=== PATIENT | male | born 1985 | race Caucasian/White ===

== ENCOUNTER 2020-07-01 11:38 | Emergency (ER) | payer OTHER, SELFPAY ==
--- NOTE | ~2020-07-01 | XR_ITS ---
EXAMINATION: XR chest 2V DATE: 07/01/2020 13:35 INDICATION: Right chest pain. TECHNIQUE: Frontal and lateral views of the chest were obtained. COMPARISON: None. FINDINGS: The chest demonstrates clear lungs without pneumonia, pleural effusion, or pneumothorax. Th e heart size is normal. There are surgical clips in left abdomen. There is mild chronic anterior wedg ing of multiple vertebral bodies. There is an old healed fracture of right eighth rib. IMPRESSION: 1. No acute cardiopulmonary disease. Reviewed, dictated and finalized at location [facility]
[2020-07-01 11:42] VITALS: BP 144/100; PULSE 83; RESP 16; TEMP 36.3; O2SAT 99
--- NOTE | 2020-07-01 12:35 | ED.BACK ---
HPI - Back Pain/Injury General Chief Complaint: Back Pain/Injury Stated Complaint: rib pain Time Seen by Provider: 07/01/20 11:56 Source: patient, family, RN notes reviewed and old records reviewed History of Present Illness HPI Narrative: 35-year-old male presents to emergency department for right-sided thoracic back pain that wraps around to his right flank intermittently for the past 2 weeks. Patient states he was doing yard work about 2 weeks ago when he noticed the pain. Pain is worse with movement, better with rest. He has been taken Tylenol Motrin to help with the pain. Denies any numbness or tingling. Related Data Allergies Allergy/AdvReac Type Severity Reaction Status Date / Time codeine AdvReac Itching Verified 07/01/20 11:48 Review of Systems Review of Systems: Narrative: CONSTITUTIONAL: Denies fever, chills, or sweats. EYES: Denies visual changes, redness, or discharge. ENT: Denies rhinorrhea, congestion, sore throat, or otalgia. CARDIOVASCULAR: Denies chest pain, palpitations, or edema. RESPIRATORY: Denies cough or dyspnea. GASTROINTESTINAL: Denies abdominal pain, nausea, vomiting, or diarrhea. GENITOURINARY: Denies dysuria or hematuria. SKIN: Denies rash or itching. MUSCULOSKELETAL: Right-sided thoracic pain joint pain, or myalgia. NEUROLOGIC: Denies headache, numbness, dizziness, or weakness. PSYCHIATRIC: Denies anxiety or depression. All systems reviewed & are unremarkable except as noted in HPI and below (ROS) PMFSH Social History Social History Gender identity (if verbalized by the patient): Male Exam Narrative: Exam Narrative: GENERAL: Well-appearing, well-nourished, and in no acute distress. HEAD: Normocephalic, atraumatic. EYES: PERRLA and EOMI. ENT: Nares clear, no rhinorrhea or epistaxis. Mucous membranes moist. NECK: Supple. CHEST: Clear to auscultation. No respiratory distress. HEART: Regular rate and rhythm. No murmur heard. Normal peripheral pulses. ABDOMEN: Soft, nontender, nondistended, normal active bowel sounds. EXTREMITIES: Normal range of motion. No edema. SKIN: Warm, dry, no rash. MSK: Right-sided thoracic TTP NEURO: No focal deficits. Alert and oriented x3. PSYCH: Normal mood and affect. Course Reevaluation(s) Reevaluation #1: 14:05 -reevaluated patient, pain improved. Pain likely musculoskeletal. Counseled patient to follow-up with his medical provider within 1 week. Take Tylenol and Motrin/ibuprofen as needed for pain. Return to emergency department if symptoms persist, worsen, or other concerns. Vital Signs Vital signs: Vital Signs Temperature 36.3 C L 07/01/20 11:42 Pulse Rate 83 07/01/20 11:42 Respiratory Rate 16 07/01/20 11:42 Blood Pressure 144/100 H 07/01/20 11:42 Pulse Oximetry 99 07/01/20 11:42 Temperature 36.3 C L 07/01/20 11:42 Pulse Rate 83 07/01/20 11:42 Respiratory Rate 16 07/01/20 11:42 Blood Pressure 144/100 H 07/01/20 11:42 Pulse Oximetry 99 07/01/20 11:42 MDM - Back Pain/Injury Medical Records Attestation: I reviewed the patient's medical records. Imaging Data Radiologist's impression: ITS Impressions Chest X-Ray 07/01/20 13:42 IMPRESSION: 1. No acute cardiopulmonary disease. Discharge Plan Discharge Clinical Impression: Acute thoracic back pain Patient Disposition: Home, Self-Care Condition: Improved Instructions: Muscle Strain (DC) Additional Instructions: 1. Follow-up with your medical provider within 1 week. 2. Return to emergency department if symptoms persist, worsen, or other concerns. 3. Can alternate Tylenol, and 600 mg Motrin/ibuprofen as needed for pain. Time of Disposition: 14:13
[2020-07-01] MEDS: ACETAMINOPHEN 325 MG TABLET 650 MG PO (12:59)
[2020-07-01] MEDS: KETOROLAC 30 MG/ML VIAL (*BKC) IM (12:59)
--- NOTE | 2020-07-01 13:23 | PC.NURSE ---
patient reports no change in pain after medications. erp aware
== END 2020-07-01 14:27 | disposition home or self-care (01) ==
PROVIDERS: Emergency Provider Emergency Medicine; PCP Family Medicine
DX: M54.6 Pain in thoracic spine (principal)
CPT/HCPCS: 71046; 96372; 99283; A9270; J1885

== ENCOUNTER 2024-12-24 02:18 | Emergency (ER) | payer OTHER, SELFPAY ==
--- NOTE | ~2024-12-24 | XR_ITS ---
Left ankle Technique: AP, oblique, and lateral views were obtained. Clinical History: Pain Findings: No acute fracture or dislocation is seen. Osseous alignment is anatomic. Ankle mortise and other visualized joint spaces are preserved. Soft tissues are otherwise unremarkable. Impression: Unremarkable left ankle. Reviewed, dictated and finalized at location . Impression: Unremarkable left ankle.
[2024-12-24 02:27] VITALS: BP 146/93; PULSE 95; RESP 17; TEMP 36.9; O2SAT 100
[2024-12-24] MEDS: HYDROcodone/acetaminophen (*CRX) 7.5-325 MG TABLET 1 TAB PO (02:59)
[2024-12-24] MEDS: KETOROLAC 15 MG/ML VIAL (*BKC) IM (03:00)
--- NOTE | 2024-12-24 03:48 | ED_ITS ---
HPI - General Adult General Chief complaint: Extremity Injury, Lower Stated complaint: left ankle pain Time Seen by Provider: 12/24/24 02:31 History of Present Illness HPI narrative: Patient is a 39-year-old male who presents to the emergency department this evening complaining of left ankle pain, redness and some swelling. Patient states that symptoms started a few days ago. States that he has had a history of tendinitis to his right ankle and states that this feels similar. Patient states that he has been taking aspirin for the pain with minimal to no relief. Denies any recent falls, any trauma to the left ankle joint. No additional symptoms or concerns. Related Data Allergies Allergy/AdvReac Type Severity Reaction Status Date / Time codeine AdvReac Itching Verified 07/01/20 11:48 Review of Systems Review of Systems: All systems are reviewed and are negative unless stated otherwise in the HPI. [facility] Social History Social History Gender identity (if verbalized by the patient): Male Exam Narrative: General: Alert, awake, afebrile, in no acute distress. HEENT: PERRL, no rhinorrhea, no post nasal drip, oropharynx clear. Neck: Trachea midline, no JVD, no lymphadenopathy. Cardiovascular: Regular rate and rhythm, no murmurs, rubs or gallops, no peripheral edema. Respiratory: Clear to auscultation bilaterally, no tachypnea, no wheezing, no rhonchi, no rubs, no respiratory distress. Abdomen: Soft, nontender, nondistended, no rebound, no guarding, no peritoneal signs. Musculoskeletal: Mild swelling noted to the left ankle joint around the left lateral malleoli, patient is tender behind the lateral malleoli along the maría neus tendon/muscle, no deformity or joint effusion noted. Skin: No rashes or petechia, no signs of infection. Psychiatric: Alert and oriented, normal behavior and judgment for situation. Neurological: Alert and oriented to person, place, and time. Follows all commands. No focal deficits, speech is clear and fluent. Course Vital Signs Vital signs: Vital Signs Temperature 98.4 F 12/24/24 02:27 Pulse Rate 95 12/24/24 02:27 Respiratory Rate 17 12/24/24 02:27 Blood Pressure 146/93 H 12/24/24 02:27 Pulse Oximetry 100 12/24/24 02:27 Temperature 98.4 F 12/24/24 02:27 Pulse Rate 75 12/24/24 04:08 Respiratory Rate 16 12/24/24 04:08 Blood Pressure 127/89 12/24/24 04:08 Pulse Oximetry 100 12/24/24 04:08 Medical Decision Making MDM Narrative Medical decision making narrative: The patient was evaluated by myself in the emergency department. History is obtained from patient who is an independent historian and physical exam was performed. External medical records were reviewed at this time. Patient was administered an oral [place] 7.5-325 mg, 15 mg of IM Toradol for pain. Imaging studies obtained included left ankle x-ray which was independently interpreted by me revealing no acute process, which is pending final radiology interpretation. Patient was placed in an Faustino wrap and informed that he is to rest the left ankle joint. Instructed to take ibuprofen and Tylenol alternating between to do and to ice the joint and or apply heat. He was also informed that he will be started on a Medrol Dosepak as this may help with his tendonitis like pain. Differential diagnosis considerations include tendinitis, fracture joint effusion, dislocation. Comorbidities impacting this visit include none. I have evaluated and discussed social determinants of health with the patient that could potentially impact subsequent diagnosis and treatment plans. On repeat assessment of the patient, reevaluation revealed that the patient is doing well and is in no acute distress. Patient symptoms have improved since he arrived to our emergency department. Repeat vital signs were all reviewed and noted to be stable. Differential diagnosis and treatment plan were discussed with the patient at bedside. Patient agrees with discussion and after shared medical decision making agrees with discharge. All questions were answered to the patient's satisfaction. Patient will follow up with his PCP in 3-5 days. Script for Medrol Dosepak was sent to patient's pharmacy to take as prescribed for his tendinitis. Provided with an orthopedic referral instructed to call to set up a follow-up appointment if his symptoms persist. Patient was provided with strict return precautions and instructed to return to the emergency department if any new or worsening symptoms develop. The patient was discharged in stable condition. Vital Signs Vital Signs: Vital Signs Temperature 98.4 F 12/24/24 02:27 Pulse Rate 95 12/24/24 02:27 Respiratory Rate 17 12/24/24 02:27 Blood Pressure 146/93 H 12/24/24 02:27 Pulse Oximetry 100 12/24/24 02:27 Temperature 98.4 F 12/24/24 02:27 Pulse Rate 75 12/24/24 04:08 Respiratory Rate 16 12/24/24 04:08 Blood Pressure 127/89 12/24/24 04:08 Pulse Oximetry 100 12/24/24 04:08 Discharge Plan Discharge Clinical Impression: Ankle sprain and strain, Tendinitis Patient Disposition: Home Condition: Improved Instructions: Antibiotic Form, Ankle Sprain (DC), Tendinitis (ED) Additional Instructions: Please follow-up with your family doctor within the next 3-5 days. Take the steroid pack that you were prescribed as it may help with your tendinitis/ankle pain. Your provided an orthopedic referral instructed to call to set up follow- up with if your symptoms do not improve. Return to the ED if any new or worsening symptoms develop. Rest, ice and elevate your left ankle joint. Patient Language: [place] Prescriptions: New methylprednisolone [Medrol (Kal)] 4 mg tablets,dose pack See Rx Instructions .ROUTE .COMPLEX Qty: 21 0RF Rx Instructions: for 6 days Follow-up/Referrals: Nica,Dalila Kuo MD [Primary Care Provider] - 3 Days Johnathan Dickson MD [Physician] - 1 Week Time of Disposition: 04:01
[2024-12-24 04:08] VITALS: BP 127/89; PULSE 75; RESP 16; O2SAT 100
== END 2024-12-24 04:30 | disposition home or self-care (01) ==
PROVIDERS: Emergency Provider Emergency Medicine; PCP Family Medicine
DX: S93.402A Sprain of unspecified ligament of left ankle, initial encounter (principal); S96.912A Strain of unspecified muscle and tendon at ankle and foot level, left foot, initial encounter; M77.52 Other enthesopathy of left foot and ankle; X58.XXXA Exposure to other specified factors, initial encounter
CPT/HCPCS: 73610; 96372; 99283; A9270; J1885